=== PATIENT | male | born 1945 | race Caucasian/White ===

== ENCOUNTER → 2019-04-11 | Outpatient (CLI) | payer OTHER ==
--- NOTE | ~2019-04-11 | PFR/MVV ---
[facility] [place] [address] PULMONARY FUNCTION MVV/REPORT Name: SONIDO AVILA Room #: REG TOYA Lee.#: [id number] ������������������ Admission: 04/11/19 ������������������ Attend Phys: Sunny Leigh MD Discharge: ������������������ Date of : 49 Report #: [id number] THIS REPORT FOR: //name// >> SPIROMETRY: (BTPS) Height: 71 in cm Weight: 170 lbs kg Exam Date: 04/11/19 PRE-RX POST-RX PRED BEST %PRED BEST %PRED %CHG FVC LITERS . 4.49 . 3.02 . 67 . 2.78 . 62 . -8 FEV1 LITERS . 3.00 . 2.06 . 69 . 2.00 . 67 . -3 FEV1/FVC % . 68 . 68 . 101 . 72 . 106 . 6 LNB61-60% L/Sec . 2.66 . 1.17 . 44 . 4.35 . 51 . 16 PEF L/SEC . 8.47 . 5.66 . 67 . 5.67 . 67 . 0 FEF50/FIF50 UNITLESS . . 1.03 . . 1.12 . . 9 MVV L/Min . 130 . 58 . 45 f 1/Min . . 90 . >> LUNG VOLUMES: (BTPS) PRE-RX POST-RX PRED AVG %PRED AVG %PRED %CHG VC Liters . 4.48 . 3.08 . 69 . . . TLC Liters . 6.73 . 4.13 . 61 . . . RV Liters . 2.63 . 1.05 . 40 . . . RV/TLC % . 41 . 25 . 62 . . . FRC PL Liters . . . . . . FRC N2 Liters . 3.99 . 1.09 . 27 . . . ERV Liters . 1.53 . 0.04 . 3 . . . IC Liters . 3.06 . 0.88 . 29 . . . >> DIFFUSION: DLCO ml/Min/mmHg . 20.4 . 13.7 . 67 . . . DL [facility] ml/Min/mmHg . 20.4 . 13.7 . 67 . . . DLCO/VA ml/Min/mmHg . 3.53 . 3.71 . 105 . . . VA Liters . . 3.69 . . . . COMMENTS: COMMENTS: >> RESISTANCE: [facility] [address] [place] [address] PULMONARY FUNCTION MVV/REPORT Name: SHEREEPARISONIDO Room #: REG [facility].#: [id number] ������������������ Admission: 04/11/19 ������������������ Attend Phys: Sunny Leigh MD Discharge: ������������������ Date of : 49 Report #: [id number] PRE-RX PRED AVG %PRED Raw Total cmH20/L/Sec . . . Raw Insp cmH20/L/Sec . . . Raw Exp cmH20/L/Sec . . . Raw cmH20/L/Sec . . . Gaw L/Sec/cmH20 . . . sRaw cmH20 Sec . . . sGaw l/cmH20 Sec . . . Vtq Liters . . . # = OUTSIDE 95% CONFIDENCE INTERVAL CALIBRATION: PRED: 3.00 ACTUAL: EXP 3.01 INSP 3.02 [facility] [id number] >> INTERPRETATION/IMPRESSION: CC: Sunny Leigh DATE OF SERVICE: 04/11/2019 SPIROMETRY: FEV1 is 2.06 liters (69%), FVC is 3.02 liters (67%), FEV1/FVC is 68%. Post-bronchodilator therapy with no significant response. LUNG VOLUMES: Total lung capacity is 4.13 liters (61%). IC to ERV ratio is 1.05 liters to 0.04 liters. Diffusing capacity is 67%. 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 There is mild obstruction with a mild restrictive process. Diffusing capacity is slightly decreased. No significant response to bronchodilator therapy. ��������������������������������������������� ���������������������������������������� By: ��������������������������������������������� Edilberto Walter MD /nt
== END ==
LOC: PUL 09:40
DX: C34.90 Malignant neoplasm of unspecified part of unspecified bronchus or lung (principal)